=== PATIENT | male | born 1985 | race Caucasian/White ===

== ENCOUNTER 2023-01-15 08:15 | Day surgery (SDC) | payer OTHER, SELFPAY ==
--- NOTE | 2023-01-14 13:57 | HO.ANESPROP2 ---
Documented by User: Archana Hall NP 01/14/23 13:58 HPI - Anesthesia Eval Consult details Narrative: 37yo M for Upper Endoscopy [facility] Past Medical History Medical History Anxiety Social History Social History Patient Tobacco Use Status: Never used Tobacco Use of substances other than those prescribed or required for medical reasons: Yes Substance Use Frequency: Daily Are you DNR?: No Advance Directives: No Advance Directives Information Provided: Yes Meds Allergies Allergy/AdvReac Type Severity Reaction Status Date / Time amoxicillin [From Augmentin] Allergy Unknown Verified 01/14/23 13:56 clavulanic acid Allergy Unknown Verified 01/14/23 13:56 [From Augmentin] Home Medications Medication Instructions Recorded Confirmed Last Taken Type aripiprazole 5 mg tablet 5 mg PO DAILY 01/14/23 01/14/23 Unknown History azelastine 137 mcg (0.1 %) nasal intranasal 01/14/23 Unknown History spray aerosol bupropion HCl 300 mg 24 hr tablet, 300 mg PO DAILY 01/14/23 01/14/23 Unknown History extended release dextroamphetamine-amphetamine ER 1 cap PO QAM 01/14/23 01/14/23 Unknown History 20 mg 24hr capsule,extend release naproxen 01/14/23 01/14/23 Unknown History trazodone 300 mg tablet PO 01/14/23 Unknown History Exam Exam Date and Time: January 14, 2023 135 Assessment and Plan Assessment Anesthesia Assessment: Chart Reviewed Documented by User: Esthela Morocho MD 01/15/23 09:28 [facility] Past Medical History Medical History Anxiety Family History Family history of problems with anesthesia: No Surgical History History of Problems with Anesthesia: No Social History Social History Patient Tobacco Use Status: Never used Tobacco Use of substances other than those prescribed or required for medical reasons: Yes Substance Use Frequency: Daily Are you DNR?: No Advance Directives: No Advance Directives Information Provided: Yes Meds Allergies Allergy/AdvReac Type Severity Reaction Status Date / Time amoxicillin [From Augmentin] Allergy Unknown Verified 01/14/23 13:56 clavulanic acid Allergy Unknown Verified 01/14/23 13:56 [From Augmentin] Home Medications Medication Instructions Recorded Confirmed Last Taken Type aripiprazole 5 mg tablet 5 mg PO DAILY 01/14/23 01/14/23 Unknown History azelastine 137 mcg (0.1 %) nasal intranasal 01/14/23 Unknown History spray aerosol bupropion HCl 300 mg 24 hr tablet, 300 mg PO DAILY 01/14/23 01/14/23 Unknown History extended release dextroamphetamine-amphetamine ER 1 cap PO QAM 01/14/23 01/14/23 Unknown History 20 mg 24hr capsule,extend release naproxen 01/14/23 01/14/23 Unknown History trazodone 300 mg tablet PO 01/14/23 Unknown History Exam Airway Mallampati Class: I TM Dist: >3cm Neck ROM: Full Heart: rr Lungs: cta Assessment and Plan Assessment Anesthesia Assessment: Anesthesia Plan Discussed Final Anesthetic Review Family History of Problems with Anesthesia: No History of Problems with Anesthesia: No NPO: Yes ASA Class: II Final Preanesthetic Review: No Changes in Pt Med Stat, Meds/Allgs Chart Reviewed, Consent Obtained/Reviewed and Anes Risks/Benef Reviewed Patient Risk: Low Procedure Risk: Low Anesthetic Plan Anesthetic Plan: MAC: Disposition: Standard PACU
[2023-01-15 08:47] VITALS: BMI 29.8
[2023-01-15 08:52] VITALS: BP 147/89; PULSE 61; RESP 16; TEMP 36.3; O2SAT 99
[2023-01-15] MEDS: Lactated Ringers 1,000 ML 100 ML IVCONT (08:54)
[2023-01-15 10:20] VITALS: BP 106/54; PULSE 57; RESP 20; TEMP 36.4; O2SAT 98
--- NOTE | 2023-01-15 10:23 | P.BOP_ITS ---
Brief Operative Note Date of Service: 01/15/23 Pre-op diagnosis: Nausea Post-op diagnosis: other (Minimal hiatal hernia) Procedure: EGD with biopsies Surgeon: Onel Irizarry Anesthesia: MAC Was an Analysis Or Research Safety Inspector used for this Procedure?: No Estimated blood loss (mL): 2.0 Pathology: other (A. Gastric antrum B. EG Junction at 39cm) Condition: stable Disposition: PACU
[2023-01-15 10:35] VITALS: BP 125/69; PULSE 60; RESP 16; TEMP 36.5; O2SAT 98
--- NOTE | 2023-01-15 11:29 | OP_ITS ---
DATE OF SERVICE: 01/15/2023 SURGEON: Onel Irizarry MD INDICATIONS: The patient presents for evaluation of ongoing issues with nausea and dry heaves. Full consent has been obtained from him for this, including risks of bleeding and perforation. PREOPERATIVE DIAGNOSIS: Nausea and dry heaves. POSTOPERATIVE DIAGNOSIS: PROCEDURE PERFORMED: Esophagogastroduodenoscopy with biopsies. ESTIMATED BLOOD LOSS: COMPLICATIONS: ANESTHESIA: Monitored anesthesia care. ASSISTANTS: SPECIMENS: POSTOPERATIVE DIAGNOSES: Nausea and dry heaves, minimal hiatal hernia, minimal changes of gastritis. DESCRIPTION OF PROCEDURE: The patient was placed in the left lateral decubitus position. The Olympus video gastroscope was passed in the posterior oropharynx and upper esophagus under direct vision. The scope was passed slowly to the distal esophagus. The gastroesophageal junction appeared at 39 cm. There was a very minimal irregularity consistent with some reflux but no evidence of any esophagitis nor any definitive Alcantara's mucosa. The scope entered the stomach. There was a minimal hiatal hernia. The scope was advanced to the pylorus, and the duodenum was cannulated to the descending portion. The duodenum including the bulb appeared normal without mass or ulceration. The scope was withdrawn back to the stomach. The gastric antrum had some areas of erythema and edema but no erosions nor ulceration. There was good peristalsis. The scope was retroflexed visualizing the proximal stomach carefully which appeared normal, without any sign of mass or ulceration. The scope was straightened. Biopsies were obtained from the gastric antrum. The scope was withdrawn back to the esophagus. Biopsies were obtained at the EG junction at 39 cm. Proximal to this, the esophageal mucosa appeared normal. The scope was withdrawn from the patient. He tolerated the procedure well and was returned to the recovery area in stable condition. IMPRESSION: 1. Minimal hiatal hernia with minimal changes of reflux. 2. Minimal gastritis. PLAN: The results of the biopsies will be checked. At this point, he does report that he is continuing to have his morning episodes of dry heaves and some nausea. However, after a relatively short time, this tends to go away and the rest of the day he does well. I do suspect he is having some possible nocturnal reflux in relation to eating close to bedtime including having some alcoholic beverages. I did advise him to try not to eat or use any alcohol for at least 4 hours before bedtime. I will give him a trial of omeprazole to use for 1 or 2 months just to see if that might help decrease these episodes in the event reflux is playing a role. He will see me in followup as well. MD NIYAH Arora/SAULO / [id number] MTDD
== END 2023-01-15 11:20 | disposition home or self-care (01) ==
PROVIDERS: PCP Registered Nurse; Visit Provider Internal Medicine
PROC: 0DJ08ZZ Inspection of Upper Intestinal Tract, Via Natural or Artificial Opening Endoscopic (ICD-10-PCS; CPT 43235; principal; 2023-01-15 09:40)
DX: K29.70 Gastritis, unspecified, without bleeding (principal); K21.9 Gastro-esophageal reflux disease without esophagitis; K44.9 Diaphragmatic hernia without obstruction or gangrene; F41.1 Generalized anxiety disorder; Z79.899 Other long term (current) drug therapy; Z88.1 Allergy status to other antibiotic agents
CPT/HCPCS: 43239; 88305; 88342